=== PATIENT | female | born 2000 | race Hispanic/Latino ===

== ENCOUNTER 2022-10-24 22:04 | Emergency (ER) | payer OTHER ==
[2022-10-24 23:19] LABS: Bilirubin Neg (Negative); Blood, Urine Negative (Negative); Clarity Clear (Clear); Glucose, Urine (Dipstick) Normal (Negative); Ketone, Urine Negative (Negative); Leukocyte 100 (Negative); Nitrite Negative (Negative); Protein, Urine (Dipstick) Negative (Neg-Trace); Specific Gravity, Urine 1.025 (1.005-1.030)
[2022-10-24 23:25] LABS: Pregnancy Test - Urine (BHCG) POSITIVE (Negative); Pregu Control Background? CLEAR/WHITE (CLR/WHITE); Pregu Control Bar Appear? YES (CONTROL BAR); Specific Gravity 1.025 (1.002-1.036)
[2022-10-24 23:28] LABS: Bacteria/HPF Rare-Few HPF (None Seen)
[2022-10-26 10:53] LABS: GC by PCR, EndoCx Swab Not Detected (NotDetected)
[2022-10-26 10:53] LABS: Chlam.trachomatis by PCR,Urine Not Detected (NotDetected); GC N.gonorrhoeae PCR,UrineVOID Not Detected (NotDetected)
== END 2022-10-25 02:44 | disposition home or self-care (01) ==
LOC: CSHERS 22:04
DX: R10.9 Unspecified abdominal pain (principal); R42 Dizziness and giddiness; R11.0 Nausea
CPT/HCPCS: 36415; 76856; 81003; 81015; 81025; 84702; 87077; 87086; 87480; 87491; 87510; 87591; 87660

== ENCOUNTER 2022-10-28 12:08 | Emergency (ER) | payer OTHER | END 2022-10-28 13:24 | disposition home or self-care (01) | LOC: CSHERS 12:08 | DX: Z32.01 Encounter for pregnancy test, result positive (principal) | CPT/HCPCS: 36415; 84702; 99282 ==

== ENCOUNTER 2022-12-10 18:26 | Emergency (ER) | payer OTHER ==
[2022-12-10 19:53] LABS: Bilirubin Neg (Negative); Blood, Urine Negative (Negative); Clarity Clear (Clear); Glucose, Urine (Dipstick) Normal (Negative); Ketone, Urine Negative (Negative); Leukocyte 100 (Negative); Nitrite Negative (Negative); Protein, Urine (Dipstick) 15 mg/dl (Neg-Trace); pH, Urine 6.5 (5.0-9.0)
[2022-12-10 20:01] LABS: CAUTI Indications for Culture Pregnancy; RBC/HPF 0-3 HPF (0-3)
[2022-12-10 20:02] LABS: Bacteria/HPF 1+ HPF (None Seen); Mucous/LPF 1+ LPF (<2+)
[2022-12-10 20:04] LABS: Urine Culture Reflex Yes Yes
== END 2022-12-10 21:32 | disposition home or self-care (01) ==
LOC: CSHERS 18:26
DX: O9A.211 Injury, poisoning and certain other consequences of external causes complicating pregnancy, first trimester (principal); O99.891 Other specified diseases and conditions complicating pregnancy; S30.1XXA Contusion of abdominal wall, initial encounter; Y04.8XXA Assault by other bodily force, initial encounter; Z3A.10 10 weeks gestation of pregnancy
CPT/HCPCS: 76856; 81001; 87086

== ENCOUNTER 2023-02-16 17:37 | Day surgery (SDC) | payer OTHER ==
[2023-02-16] MEDS ORDERED: hydrALAZINE 20 MG/ML VIAL SLOW IVP PRN (18:35)
[2023-02-16] MEDS ORDERED: Acetaminophen 500 MG TAB PO SCH (20:30)
[2023-02-16 21:08] LABS: Bilirubin Neg (Negative); Blood, Urine Negative (Negative); Clarity Clear (Clear); Glucose, Urine (Dipstick) Normal (Negative); Ketone, Urine 15 mg/dL (Negative); Leukocyte Negative (Negative); Nitrite Negative (Negative); Protein, Urine (Dipstick) 15 mg/dl (Neg-Trace); pH, Urine 6.5 (5.0-9.0)
[2023-02-16 21:24] LABS: RBC/HPF None Seen HPF (0-3)
[2023-02-16 21:25] LABS: Bacteria/HPF Rare-Few HPF (None Seen); CAUTI Indications for Culture Pregnancy; Squamous Epithelial 0-3 HPF (0-3); Urine Culture Reflex Yes Yes; WBC/HPF 0-3 HPF (0-3)
[2023-02-17 16:04] LABS: Chlamydia by PCR, EndoCx Swab Not Detected (NotDetected); GC by PCR, EndoCx Swab Not Detected (NotDetected)
== END 2023-02-16 22:00 | disposition home or self-care (01) ==
LOC: CSHLD/OP 17:37
PROVIDERS: ATTEND Family Medicine
DX: O26.852 Spotting complicating pregnancy, second trimester (principal); O99.891 Other specified diseases and conditions complicating pregnancy; R10.31 Right lower quadrant pain; O99.212 Obesity complicating pregnancy, second trimester; E66.01 Morbid (severe) obesity due to excess calories; O21.2 Late vomiting of pregnancy; O28.5 Abnormal chromosomal and genetic finding on antenatal screening of mother; Z3A.19 19 weeks gestation of pregnancy
CPT/HCPCS: 51701; 76805; 76817; 81001; 87086; 87480; 87491; 87510; 87591; 87660; 99285

== ENCOUNTER 2024-05-26 23:45 | Emergency (ER) | payer OTHER ==
[2024-05-27] MEDS ORDERED: Ketorolac Tromethamine 30 MG (1 mL) VIAL ONE (01:58)
[2024-05-27 02:38] LABS: #Basophils 0.03 10x3/uL (0.0-0.2); #Eosinophils 0.08 10x3/uL (0.0-0.5); #Neutrophils 6.56 10x3/uL (1.5-8.4); %Basophils 0.3 % (0.0-2.0); %Eosinophils 0.8 % (0.0-6.0); %Lymphocytes 24.9 % (18.0-47.0); %Monocytes 4.2 % (0.0-10.0); %Neutrophils 69.6 % (40.0-75.0); Hematocrit 39.1 % (34.9-44.5); Hemoglobin 12.7 g/dL (12.0-15.5); Mean Corpuscular HGB CONC 32.5 g/dL (32.0-36.0); Mean Corpuscular Hemoglobin 27.2 pg (27.0-33.0); Mean Corpuscular Volume 83.7 fL (81.6-98.3); Platelet Count 378 10x3/uL (150-450); RBC Distribution Width 14.3 % (11.5-14.5); Red Blood Cell (RBC) Count 4.67 10x6/uL (3.90-5.03); White Blood Cell (WBC) Count 9.4 10x3/uL (3.5-10.5)
[2024-05-27 02:43] LABS: BHCG - Serum Negative (NEGATIVE); Pregs Control Background? CLEAR/WHITE (CLR/WHITE); Pregs Control Bar Appear? YES (CONTROL BAR)
[2024-05-27 02:50] LABS: ALT (SGPT) 44 U/L (8-55); AST (SGOT) 23 U/L (5-34); Albumin 3.6 g/dL (3.5-5.0); Alkaline Phosphatase 127 U/L (40-110); Anion Gap 12 mmol/L (10-20); BUN (Urea Nitrogen) 11 mg/dL (7.0-18.7); Bilirubin, Total 0.3 mg/dL (0.2-1.2); Calc. Creatinine Clearance 0 mL/min (70-130); Calcium 9.4 mg/dL (7.8-10.44); Carbon Dioxide 25 mmol/L (22-29); Chloride 104 mmol/L (98-107); Estimated GFR 120; Globulin 4.1 g/dL (2.4-3.5); Glucose 96 mg/dL (70-105); Protein, Total 7.7 g/dL (6.0-8.3); Sodium 137 mmol/L (136-145)
== END 2024-05-27 03:26 | disposition home or self-care (01) ==
LOC: CSHERS 23:45
DX: M79.10 Myalgia, unspecified site (principal)
CPT/HCPCS: 80053; 84703; 85025; 87428; 96374; J1885